=== PATIENT | male | born 1960 | race Caucasian/White ===

== ENCOUNTER 2025-04-19 08:20 | Emergency (ER) | payer MEDICARE, OTHER ==
[2025-04-19] MEDS ORDERED: Dexamethasone 10 MG/ML VIAL ONE (08:50)
== END 2025-04-19 10:15 | disposition home or self-care (01) ==
LOC: MADERS 08:20
DX: M54.41 Lumbago with sciatica, right side (principal); M51.369 Other intervertebral disc degeneration, lumbar region without mention of lumbar back pain or lower extremity pain; M16.10 Unilateral primary osteoarthritis, unspecified hip; M54.2 Cervicalgia; G89.29 Other chronic pain; E78.5 Hyperlipidemia, unspecified; F17.210 Nicotine dependence, cigarettes, uncomplicated
CPT/HCPCS: 72100; 72170; 94760; 96372; 99283; J1100; J3010